=== PATIENT | female | born 1960 | race Two or more races ===

== ENCOUNTER 2020-10-01 02:51 | Emergency (ER) | payer MEDICAID ==
[2020-10-01] MEDS ORDERED: Acetaminophen 325 MG Tab PO ONE (04:01)
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
--- NOTE | 2020-10-01 12:10 | US ---
VL Duplex Lwr Ext Veins Ltd Lt INDICATION: R/O DVT FINDINGS: Ultrasound examination of the lower extremity using Doppler and compressive technique demonstrates that the common femoral, femoral, and popliteal veins are patent, and negative for thrombus. The calf veins were segmentally visualized and are negative where seen. IMPRESSION: Negative for deep venous thrombosis.
== END 2020-10-01 05:23 | disposition home or self-care (01) ==
LOC: JP.ED 02:51
DX: M79.652 Pain in left thigh (principal); Z86.718 Personal history of other venous thrombosis and embolism; Z79.01 Long term (current) use of anticoagulants; Z79.899 Other long term (current) drug therapy; Z88.5 Allergy status to narcotic agent; Z91.040 Latex allergy status; Z91.018 Allergy to other foods
CPT/HCPCS: 93971; 99283; A9270